=== PATIENT | male | born 1975 | race Caucasian/White ===

== ENCOUNTER 2018-04-05 14:28 | Emergency (ER) | payer MEDICARE ==
[~2018-04-05] VITALS: Ht 182.9 cm; Wt 121.0 kg
[~2018-04-05 14:28] MED LIST: ENOX40P SQ; LORT5TAB PO; METO10TA PO; PRED10 PO; PREV30CA36 PO; SENN1TAB11 PO; SYNT88TA PO; TRAZ50TA78 PO; VALP250UDC PO
[2018-04-05 14:32] VITALS: BP 150/80; PULSE 84; RESP 18; TEMP 97.6; O2SAT 99
== END 2018-04-05 15:30 | disposition left against medical advice (07) ==
LOC: NEPD 14:28
DX: F99 Mental disorder, not otherwise specified (principal)
CPT/HCPCS: 99281